=== PATIENT | male | born 1990 | race Caucasian/White ===

== ENCOUNTER 2019-06-12 02:21 | Emergency (ER) | payer OTHER ==
[~2019-06-12] VITALS: Ht 175.3 cm; Wt 77.1 kg
--- NOTE | 2019-06-12 02:35 | NUR ---
Patient walked into ER c/o right knee pain after training [employer]. Patient states he heard loud pop when injury ocurred.
[2019-06-12] MEDS ORDERED: IBUPROFEN 600 MG TABLET ONE (02:39)
[2019-06-12] MEDS ORDERED: IBUPROFEN 600 MG TABLET PO ONE (02:45)
--- NOTE | 2019-06-12 02:46 | NUR ---
Patient discharged to home in stable conditon. Written and verbal after care instructions given. Patient verbalizes understanding of instructions. Walked out of ER with no distress noted.
== END 2019-06-12 02:55 | disposition home or self-care (01) ==
LOC: ER 02:26
DX: S89.91XA Unspecified injury of right lower leg, initial encounter (principal); X50.1XXA Overexertion from prolonged static or awkward postures, initial encounter; Y93.89 Activity, other specified; Y92.89 Other specified places as the place of occurrence of the external cause; Y99.8 Other external cause status
CPT/HCPCS: A4663

== ENCOUNTER 2020-06-26 08:54 | Emergency (ER) | payer OTHER ==
[~2020-06-26] VITALS: Ht 172.7 cm; Wt 68.0 kg
[2020-06-26 10:05] LABS: *BILIRUBIN,URIN NEGATIVE (NEGATIVE); *BLOOD, URINE NEGATIVE (NEGATIVE); *CLARITY,URINE CLEAR (CLEAR); *COLOR,URINE YELLOW (YELLOW); *KETONES,URINE NEGATIVE (NEGATIVE); *UROBILINOGEN,URINE 0.2 E.U./dl (NORMAL); LEUKOCYTE ESTERASE ,URINE NEGATIVE (NEGATIVE); NITRITE, URINE NEGATIVE (NEGATIVE); PH,URINE 7.5 (5.0-8.0); UGLUCOSE NEGATIVE (NEGATIVE)
[2020-06-26 10:18] VITALS: BP 136/76
--- NOTE | 2020-06-26 10:18 | NUR ---
Patient discharged to home in stable condition. Written and verbal after care instructions given. Patient verbalizes understanding of instructions. Stressed follow up or return to ER for worsening s/s.
== END 2020-06-26 10:19 | disposition home or self-care (01) ==
LOC: ER 08:54
DX: N34.2 Other urethritis (principal); N50.812 Left testicular pain; N50.811 Right testicular pain
CPT/HCPCS: 76870; A4663